=== PATIENT | female | born 1965 | race Hispanic/Latino ===

== ENCOUNTER 2017-01-18 14:29 | Inpatient (IN) | payer SELFPAY ==
[~2017-01-18] VITALS: Ht 160 cm; Wt 66.2 kg
[2017-01-18] VITALS (8 sets, daily range): BP systolic 91–111; BP diastolic 51–64; PULSE 66–89; RESP 14–17; O2SAT 98–100
[~2017-01-18 14:29] MED LIST: FERR-83 PO; FUR20 PO; INSLIS SQ; INSU100C8 SUBQ; SPIR50TA2 PO
--- NOTE | 2017-01-18 16:39 | ED.REPORT ---
HPI-Chest Pain 40 and Over Date of Service Jan 18, 2017 ED Provider: Raphael Reina MD A 51 year old female with a history of esophageal varices, primary biliary cirrhosis, diabetes, and GERD presents to the ED accompanied by her family with chest discomfort onset two days ago. The pain is described as "pressure" and "tightness." Associated symptoms include exertional SOB, intermittent lower extremity swelling, and recent weight gain (12lb in six months). The patient denies fever, chills, cough, vomiting, diarrhea, melena, hematochezia, or other symptoms. She has never had similar symptoms in the past. The patient speaks [place] and her family was translating. She has not noticed any bloody or melanotic stools. She has been becoming increasingly fatigued over the last several weeks. She has no history of DVT or PE. Nursing Notes Stated Complaint: CHEST PRESSURE Chief Complaint: Chest Pain Nursing Notes Reviewed: Yes Allergies: Coded Allergies: No Known Allergies (Verified Allergy, Unknown, 01/18/17) No Known Drug Allergies (Verified Allergy, Unknown, 09/26/16) Scheduled Ferrous Sulfate (Ferrous Sulfate) 325 Mg Tablet 325 MG PO BIDWM Furosemide (Furosemide) 20 Mg Tab 20 MG PO QAM Insulin Aspart (NovoLOG U100 Insulin Vial) 100 U/Ml U 10 UNIT SUBQ TIDWM 10 plus correctional per s/s Insulin Detemir (Levemir U100 Insulin Vial) 100 Unit/1 Ml Vial 15 UNIT SUBQ HS Nadolol (Nadolol) 20 Mg Tablet 20 MG PO QAM Spironolactone (Spironolactone) 50 Mg Tablet 50 MG PO QAM Ursodiol (Ursodiol) 250 Mg Tablet 250 MG PO TIDWM General Time Seen by MD: 16:37 Chief Complaint Chest pain Hx Obtained From: Patient, Other family... Arrived By: Walk-in Sudden in Onset?: No Onset Occurred: 2 days ago Symptom Duration: Since onset Location: : Chest left: Chest right Quality: Painful (Tight), Pressure Severity: Current: Moderate Severity: Maximum: Moderate Exacerbated by: Exertion, moderate Context Related History: Reports: Diabetes mellitus, GERD Recent Healthcare: No recent doctor visit Similar Sx Previous: No Past Medical History Past Medical History Liver cirrhosis. Primary biliary cirrhosis. Cholelithiasis. Symptomatic anemia. Uncontrolled insulin-dependent diabetes mellitus type 2. GERD. Past Surgical History Liver biopsy x2 Reports: Cholecystectomy Smoking History Unknown if Ever Smoker Social History Other Social History: Poor social support Ambulatory Status Independent Review of Systems Constitutional: Denies: Chills, Fever Respiratory: Reports: Shortness of breath (Exertional), Denies: Non-productive cough Cardiovascular: Reports: Chest pain GI: Denies: Diarrhea, Hematochezia, Melena, Vomiting Musculoskeletal: Reports: Extremity swelling (Intermittent, bilateral lower extremities) Complete sys rev & neg: except as marked. Endocrine: Reports: Weight gain (12lb in 6 months) Physical Exam Initial Vital Signs Vital Signs (First) Date Time Temp Pulse Resp B/P Pulse Ox O2 Delivery O2 Flow Rate FiO2 01/18/17 14:45 36.4 71 15 104/61 100 Room Air Initial VS: Reviewed Head / Eyes: Atraumatic, Normocephalic ENT: Conjunctiva normal, No scleral icterus Neck: Supple, Full range of motion Neurologic: Alert, Oriented, Nonfocal Psychiatric: Mood/affect normal, Behavior normal, Normal thought content General/Constitutional: Awake, Alert Respiratory / Chest: Breath sounds = bilat, No respiratory distress Mild crackles throughout lung bases bilaterally Cardiovascular: Heart rate NL, Regular rhythm, Heart sounds NL, No gallop, No murmurs, No rubs Abdomen: Soft, Non-tender, No distention Lower Extremity / Pelvis / MS: Inspection NL, No swelling, Non-tender, No edema Skin: Warm, Dry Spider angiomata to chest and face Rectum / Perineum: Atraumatic, No gross blood, No discharge, No fecal impaction , No fissures, No hemorrhoids Rectal for Blood: Positive: Blood - occult heme + (Dark brown, strongly guaiac positive) Interpretation & Diagnostics Lab Results Interpretation Result Diagram: 01/18/17 2030 01/18/17 1643 Test 01/18/17 16:43 White Blood Count 3.6th/mm3 (3.8-10.1) Red Blood Count 2.78mil/mm3 (3.90-5.20) Mean Corpuscular Volume 92.1fL (81-100) Mean Corpuscular Hemoglobin 27.0pg (27.0-35.0) Mean Corpuscular Hemoglobin Concent 29.3% (32.0-37.0) Red Cell Distribution Width 15.9% (12.3-15.4) Platelet Count 95bil/L (150-400) Neutrophils (%) (Auto) 62.3% (40-74) Lymphocytes (%) (Auto) 25.6% (14-46) Monocytes (%) (Auto) 8.4% (4-12) Eosinophils (%) (Auto) 3.1% (0-5) Basophils (%) (Auto) 0.3% (0-3) Prothrombin Time 12.0sec (8.1-12.5) Prothromb Time International Ratio 1.12ratio Sodium Level 135mEq/L (134-144) Potassium Level 3.6mEq/L (3.5-5.2) Chloride Level 100mEq/L (97-108) Carbon Dioxide Level 24mmol/L (18-29) Blood Urea Nitrogen 16mg/dL (6-24) Creatinine 0.64mg/dL (0.57-1.00) Estimat Glomerular Filtration Rate 141mL/min (>59) Glucose Level 68mg/dL (60-99) Calcium Level 8.9mg/dL (8.5-10.1) Magnesium Level 1.7mg/dL (1.6-2.6) Total Bilirubin 0.9mg/dL (0.0-1.2) Aspartate Amino Transf (AST/SGOT) 29U/L (0-50) Alanine Aminotransferase (ALT/SGPT) 24U/L (0-32) Alkaline Phosphatase 77U/L (25-150) Total Protein 8.1g/dL (6.4-8.4) Albumin 3.7g/dL (3.4-5.0) Hold [place] Top Tube Received (Received) ECG Interpretation Time: 16:52 Interpreted by: ED physician Normal ECG Interpretation: Normal ECG w/ rate of... (68) X-Ray Chest Interpretation Chest Xray Interpretation: IMPRESSION: No acute process. Dictated by: Tung Harman M.D. on 01/18/2017 at 17:59 View: Portable, 1 view Interpretation / Wet Read by: Interpret - Radiologist Re-Eval/Medical Decision Med Decision/Clinical Course A 51 year old female with a history of esophageal varices, primary biliary cirrhosis, diabetes, and GERD presents to the ED accompanied by her family with chest discomfort onset two days ago. The pain is described as "pressure" and "tightness." Associated symptoms include exertional SOB, intermittent lower extremity swelling, and recent weight gain (12lb in six months). The patient denies fever, chills, cough, vomiting, diarrhea, melena, hematochezia, or other symptoms. She has never had similar symptoms in the past. The patient speaks [place] and her family was translating. She has not noticed any bloody or melanotic stools. She has been becoming increasingly fatigued over the last several weeks. She has no history of DVT or PE. Here in the emergency department the patient is afebrile and hemodynamically stable. She has dark brown stool that is strongly guaiac positive. ECG 16:52 Normal ECG w/ rate 68 LABS: White blood count 3.6 - baseline Hematocrit 25.6 - down from 29.2 on 01/07/16 though patient's baseline trends from 21-29 recently CMP unremarkable Troponin negative Reviewed Chart. Endoscopy performed by Dr. Schneider 02/21/16 indicated grade 3 distal esophageal varices. In ED: Pantoprazole bolus and infusion Chest x-ray: Negative The cause of the patient's exertional shortness of breath and chest tightness is not entirely clear. He is without tachycardia or physical exam findings suggestive of DVT. She does not have any pleuritic chest discomfort and my suspicion for pulmonary embolism is relatively low. Moreover, has evidence of active GI bleeding and she has dropped her hematocrit significantly over the last 1-2 weeks. She would not be a candidate for heparinization and my suspicion for PE is very low. I do not feel further workup for PE is indicated. Acute coronary syndrome remains a possibility though also seems less likely. Initial screening EKG and troponin are reassuring. I suspect that her constellation of symptoms including fatigue, exertional shortness of breath and sensation of pressure/tightness in her chest may be all related to her underlying anemia and blood loss. Pt was discussed with GI Dr. Valles who evaluated the patient at the bedside. I had initially started her on pantoprazole bolus and infusion as well as octreotide given her history of varices. Dr. Valles did not feel that octreotide as necessary and therefore stopped. He did not feel that the patient was experiencing a brisk GI bleed though he agreed to perform endoscopy in the morning. Patient was admitted to the list service for close monitoring overnight and serial hematocrit as well as additional ACS rule out. Transferred hemodynamically stable and blood has been sent for type/screen. Source of Hx: Old records Time of Eval: 18:00 Patient Status: Condition improved Re-Evaluation/Progress Note: Rectal exam performed. Discussed with patient lab and x-ray results, diagnosis, and plan for admit. Patient agrees with plan for care and all questions were addressed. Consultation #1: Referral / Consult Name: Rylan Valles MD Call Returned at: 18:40 Haul Cane Brakeman: Will see patient, Agrees with eval, Agrees with plan Note: GI: Discussed patient's case Consultation #2: Referral / Consult Name: Cynthia Fry DO Consulted With: Hospitalist Call Returned at: 19:24 Haul Cane Brakeman: Agrees with eval, Agrees with plan, Accepts admit Counseled Regarding: Diagnosis, Lab results, Need for admission Discharge & Departure Primary Impression: Esophageal varices Esophageal varices type: unspecified type Esophageal varices bleeding: with bleeding Qualified Code: I85.01 - Esophageal varices with bleeding Additional Impressions: GI bleed GI bleed type/associated pathology: unspecified gastrointestinal hemorrhage type Qualified Code: K92.2 - Gastrointestinal hemorrhage, unspecified Dyspnea on exertion Fatigue Fatigue type: unspecified Qualified Code: R53.83 - Other fatigue Blood loss anemia Primary biliary cirrhosis Disposition: ADMITTED TO HOSPITAL Discharge Condition All VS Reviewed: Yes Condition: Improved Referrals: Rossi Romo MD (PCP) Crit Care Except Billable Proc Time Spent: 105-134 minutes Services Performed: Patient management by me, Time spent at bedside, Reviewing test results, Reviewing imaging, Discussing patient care, Documentation in record, Time with fam/surrogate Scribe Attestation Portions of this note were transcribed by Joslyn Ramirez. I, Dr. Reina, personally performed the history, physical exam, and medical decision-making; I reviewed and confirmed the accuracy of the information in the transcribed note. Signed by: Campbell Henriquez, 01/18/2017, 21:40 copies to: Rossi Romo MD, Beck O MD Jan 18, 2017 16:39 JOSLYN RAMIREZ Jan 18, 2017 18:00
[2017-01-18 16:59] LABS: BASOPHILS % (AUTO) 0.3 % (0-3); EOSINOPHILS % (AUTO) 3.1 % (0-5); MONOCYTES % (AUTO) 8.4 % (4-12); Mean Corpuscular Volume 92.1 fL (81-100); NEUTROPHILS % (AUTO) 62.3 % (40-74); Platelet Count 95 bil/L (150-400)
[2017-01-18 17:33] LABS: Magnesium 1.7 mg/dL (1.6-2.6); TROPONIN T < 0.010 ug/L (0.0-0.011)
--- NOTE | 2017-01-18 18:00 | DRSVH ---
PROCEDURE: X-RAY CHEST ONE VIEW, PORTABLE ([id number]) INDICATIONS: chest pain TECHNIQUE: One view of the chest was acquired. COMPARISON: [facility], CR, XR ABD ACUTE SERIES 3VW, 01/03/2016, 11:10. FINDINGS: Surgical changes and devices: None. Lungs and pleura: No pleural effusions or pneumothorax. Lungs are clear. Mediastinum: Mediastinal contours appear normal. Heart size is normal. Bones and chest wall: No suspicious bony lesions. Overlying soft tissues appear unremarkable. IMPRESSION: No acute process. Dictated by: Tung Harman M.D. on 01/18/2017 at 17:59 Approved by: Tung Harman M.D. on 01/18/2017 at 17:59
[2017-01-18] MEDS ORDERED: Pantoprazole Inj 80 MG, Pharmacy To Mix 1 EA in 0.9% Sodium Chloride 80 ML IV ONE ×2 (18:15)
[2017-01-18] MEDS ORDERED: Alum-Mag Hydrox-Simeth 30 mL Suspension PO PRN (18:15)
[2017-01-18] MEDS ORDERED: Ondansetron 2 mg/mL 2 mL Inj IVPUSH PRN (18:15)
[2017-01-18] MEDS ORDERED: Octreotide Inj 500 MCG in 0.9% Sodium Chloride 100 ML IV ONE (18:15)
[2017-01-18] MEDS ORDERED: Pantoprazole 4 mg/mL 10 mL Inj IVPUSH ONE (18:15)
[2017-01-18] MEDS ORDERED: 0.9% Sodium Chloride 50 ML ONE (18:19)
[2017-01-18 18:36] LABS: INR 1.12 ratio
[2017-01-18] MEDS ORDERED: Polyethylene Glycol (PEG) 17 Gm Powder PO PRN (19:30)
[2017-01-18] MEDS ORDERED: Pantoprazole Inj 80 MG in 0.9% Sodium Chloride 80 ML IV SCH (19:50)
[2017-01-18] MEDS ORDERED: URSO250T11 PO (19:52)
[2017-01-18] MEDS ORDERED: NADO20TA PO (19:52)
[2017-01-18] MEDS ORDERED: INSU100V4 SUBQ (19:52)
--- NOTE | 2017-01-18 20:10 | NUR ---
admission patient admitted with language line chemist steroids med rec completed by ED pharmacist. patient interview. Addendum: 01/18/17 at 2033 by VIET COOK RN verbal report to floor nurse cathy collado
--- NOTE | 2017-01-18 20:50 | CONS ---
[address] [address] CONSULTATION REPORT PATIENT: MARICRUZ KARIMI : 1965 MR#: [id number] ADMIT: 01/18/2017 JOB ID: [id number] DATE OF SERVICE: PHYSICIAN REQUESTING CONSULTATION: Dr. Reina. REASON FOR CONSULTATION: Supposed melena and symptomatic anemia. 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 She was diagnosed with this back in 2010 by a liver biopsy here at our institution. She also has a longstanding history of iron deficiency anemia for which she has undergone upper endoscopy, as well as colonoscopy with Dr. Schneider initially back in September 2010. It appears that she may have been lost to followup and then subsequently she had a capsule endoscopy done in December 2015, which revealed esophageal varices as well as gastropathy, subtle inflammatory small bowel nodule versus a nonbleeding angiodysplasia and small noninflammatory polyp. Following that, a repeat upper endoscopy was performed in January 2016, which revealed grade 3 distal esophageal varices and some scattered nodules with erosive features in the stomach as well as the duodenum. Biopsies that were taken at that time revealed that the gastric nodules were benign inflammatory polyp. I do not see that she had any followup with Dr. Schneider since January 2016. She now presents to the emergency department with a four- day complaint of chest tightness and shortness of breath at the request of her primary care provider, Dr. Rossi Romo, whom she saw today in clinic. She denies any overt bleeding since this hematemesis and melena and states that her stool was brown in color. She denies any chronic NSAID use. Other than fatigue and dyspnea with exertion, she has no complaints. PAST MEDICAL HISTORY: Significant for autoimmune hepatitis/PBC overlap syndrome, -induced diabetes. PAST SURGICAL HISTORY: Includes . FAMILY HISTORY: Noncontributory. SOCIAL HISTORY: Denies any alcohol or tobacco use. MEDICATIONS: At home include: 1. She states Ej three tablets daily. 2. Ferrous sulfate. 3. Furosemide 20 mg daily. 4. Spironolactone 50 mg daily. 5. Insulin. She has no known drug allergies. Her review of systems is otherwise negative except as mentioned in the HPI. PHYSICAL EXAMINATION: Her temperature is 36.4. Her pulse is 66. Her blood pressure is 111/62. Respiratory rate is 15. O2 saturations 98% on room air. Generally, she is a kimhia-updz-lfsgzkxez woman in no apparent distress. She is oriented to person, place, and time and answers questions appropriately. HEENT: No pallor. No icterus. Oropharynx is clear. Chest exam is clear to auscultation bilaterally. No telangiectasias noted on chest wall. Cardiovascular exam: S1-S2 heard, with a systolic murmur. Abdomen: Soft, nontender, nondistended, without hepatosplenomegaly. No ascites appreciated. Extremities with trace edema. Rectal exam shows brown stool. Her laboratory data shows a normal comprehensive metabolic profile, including completely normal LFTs, PT of 12. INR is 1.12. Her white blood cell count is 3.6 hemoglobin of 7.5, hematocrit of 25.6. MCV is 92, and platelet count is 95. When compared to December of last year, her hemoglobin at that time was 8.6 and hematocrit was 29.2. She has had imaging tests back in December [address] abdomen and pelvis with contrast which showed a cirrhotic- appearing liver, diffuse ascites, and cholelithiasis. ASSESSMENT AND PLAN: A 51-year-old woman with a longstanding history of iron deficiency anemia who has autoimmune hepatitis/primary biliary cirrhosis overlap syndrome presenting with symptomatic anemia. It is certainly possible that her symptoms of dyspnea on exertion are due to her anemia, though her anemia has been chronic. Would recommend transfusing her blood. However, would not transfuse to a hemoglobin more than 9, as this can worsen portal pressures. Will plan for upper endoscopy for variceal surveillance, which she is due for. In the meantime, I would restart her on her home medications to include Ursodiol, nadolol, spironolactone, and Aldactone. If upper endoscopy does not show any evidence of active bleeding, she could be discharged home following that, and then she could follow up with Dr. Torey Schneider for further followup of her anemia. Thank you for allowing me to participate in this patient's care. If you should have any further questions, please do not hesitate to contact me.
--- NOTE | 2017-01-18 22:13 | PCM.HPMED ---
Subjective Date of Service Jan 18, 2017 Primary Provider: Admitting Physician: Cynthia Fry DO Primary Care Physician: Rossi Romo MD Attending Physician: Cynthia Fry DO Admit Status: From the Emergency Department, [facility] Telemetry Chief Complaint: Chest pressure, abdominal distention and bilateral lower extremity edema History of Present Illness: Ms. Bhakta is a pleasant, [place] Islander-speaking 51 year old woman with a history of autoimmune hepatitis with primary biliary cirrhosis, esophageal varices, and gestational diabetes, presented to the emergency department with a 2 day history of chest pressure and tightness, with associated shortness of breath with exertion, bilateral lower extremity swelling, and reported abdominal distention. She was admitted for evaluation and treatment of atypical cardiac chest pain, and acute on chronic anemia. Hospital day 1 The patient states that her symptoms began approximately 2 days ago, and she could not conclude any triggers for her current symptoms. She states a 2 day history of dyspnea with exertion, abdominal fullness, and bilateral lower extremity swelling. She denies any recent follow-up with her office machine installer , Dr. Schneider. She is aware she has a history of a liver abnormality, and she states she has received blood transfusions in the past. Currently, she denies any fever, chills, nausea, vomiting, diarrhea, constipation, hematochezia, melena, hematemesis. She states she has not noticed any abnormal bleeding. She does note abdominal pain with what she describes as swelling of her abdomen , and not a pain, per se. She was seen in the emergency department by gastroenterology team, and recommendations were to admit patient for planned of EGD tomorrow morning. In the ED, initial therapies did include a PPI drip and octreotide, the octreotide was subsequently discontinued per GI once patient was deemed to not have an active bleed. Initial vitals revealed T 36 4, pulse 71, respiratory rate 15, blood pressure 104/61, 100% on room air; initial labs revealed WBC 3.6 , hemoglobin 7.5, hematocrit 25.6, platelets 95; repeat H&H revealed hemoglobin 6.5, hematocrit 22.3; electrolytes and liver function on admission were within normal range, troponin was negative. There was low suspicion for pulmonary embolism at time of admission, this patient did not have any signs or symptoms of DVT, tachycardia, and she is not a current candidate for heparinization secondary to suspected active ongoing bleed. She was transferred to [facility] in stable condition, with no continuance of symptoms of chest pain or pressure. Review of Systems: Complete ROS obtained; pertinent positives and negatives as noted above Allergies Coded Allergies: No Known Allergies (Verified Allergy, Unknown, 01/18/17) No Known Drug Allergies (Verified Allergy, Unknown, 09/26/16) Home Medications Obtained from ED documentation, med rec get to be completed Ferrous Sulfate (Ferrous Sulfate) 325 Mg Tablet 325 MG PO BIDWM Furosemide (Furosemide) 20 Mg Tab 20 MG PO QAM Insulin Aspart (NovoLOG U100 Insulin Vial) 100 U/Ml U 10 UNIT SUBQ TIDWM 10 plus correctional per s/s Insulin Detemir (Levemir U100 Insulin Vial) 100 Unit/1 Ml Vial 15 UNIT SUBQ HS Nadolol (Nadolol) 20 Mg Tablet 20 MG PO QAM Spironolactone (Spironolactone) 50 Mg Tablet 50 MG PO QAM Ursodiol (Ursodiol) 250 Mg Tablet 250 MG PO TIDWM PMH Liver cirrhosis secondary to primary biliary cirrhosis Cholelithiasis. Symptomatic anemia. Uncontrolled insulin-dependent diabetes mellitus type 2. GERD. Surgical History Liver biopsy x2 Cholecystectomy Family History Patient denies any family history of early cardiac , cardiac complications , or autoimmune disorders Social History Hx Alcohol Use: No Hx Substance Use: No Hx Tobacco Use: No Smoking Status: Never Smoker Living Arrangement: with Family Exam Vital Signs Vital Sign - Last Date Time Temp Pulse Resp B/P Pulse Ox O2 Delivery O2 Flow Rate FiO2 01/18/17 20:40 36.5 70 16 100/59 98 Room Air Exam General: Patient resting supine in bed in no acute distress HEENT: Atraumatic, no conjunctival pallor noted, mucous membranes were moist Cardiac: Regular rate and rhythm at time of examination no murmurs appreciated Chest: Pain not reproducible with palpation Pulmonary: Adequate airflow all winston, no wheeze or rhonchi appreciated Abdomen: Soft, mildly tender Extremities: Mild trace edema noted bilateral lower extremities Skin: Warm and dry MSK: Patient able to move for the 4 extremities against gravity Neuro: Cranial nerves II through XII grossly intact, speech without slur, facial expression is equal and symmetric Psych: Appropriate mood, affect, and responses to questioning; appears to have good insight and judgment about her condition Lab and Diagnostics Result Diagram: 01/18/17202901/18/17 1643 Assessment & Plan Ms. Bhakta is a pleasant, [place]er-speaking 51 year old woman with a history of autoimmune hepatitis with primary biliary cirrhosis, esophageal varices, and gestational diabetes, presented to the emergency department with a 2 day history of chest pressure and tightness, with associated shortness of breath with exertion, bilateral lower extremity swelling, and reported abdominal distention. She was admitted for evaluation and treatment of atypical cardiac chest pain, and acute on chronic anemia with suspected UGIB. Hospital day 1 Acute on chronic anemia, present on admission. Active - Admit: Hemoglobin 7.5, repeat 6.5; stat repeat for verification of drop-- 6.7 - Patient has history of esophageal varices, suspect upper gastrointestinal bleed - In ED, guaiac positive; repeat rectal exam per GI unremarkable with brown stool, no evidence of blood - Orders to transfuse TWO UpRBC based on repeat Hb 6.5, 6.7 - Continue PPI - No evidence of active bleeding, no octreotide recommended at this time - If patient were to be continuing a downward trend overnight despite transfusions, or exhibit signs of active bleeding such as hematemesis, melena, BRBPR- initiate octreotide - Continue to monitor closely at this time; trend q4 - GI has been consulted; appreciate time and recommendations - Current plan: EGD in am - Clears until 6am; then NPO - Do not transfuse blood to a Hb level > 9, with concern of worsening portal pressures - Consent for blood has been signed and placed in chart, with use of video delivery driver - 2g IV ceftriaxone x1, prophylaxis SBP in the setting of likely GIB, discuss continuation with GI Chest pressure with associated SOB with exertion, acute, present on admission. Resolved - Admit, patient complained of chest pressure and tightness without any inciting events with associated shortness of breath - At time of admission, chest pressure had subsided - DDx: Acute anemia, myocardial ischemia - On admit: Troponin negative - Trend troponin - EKG on admission revealed normal sinus rhythm without any acute ST/T changes - EKGs as needed for chest pain Primary biliary cirrhosis, chronic. Presumed stable - Followed by [facility] gastroenterology - Continue home medications when reconciliation complete Pancytopenia, chronicity unknown, present on admission. Ongoing - On admit: WBC 3.6, hemoglobin 7.5, hematocrit 25.6, platelets 95 - May be secondary to suspected upper GI bleed + history of cirrhosis - Monitor while in the hospital - Recommend continued outpatient follow-up Insulin using diabetes mellitus, chronic. Presumed stable - HbA1c in am - Home med reported at long acting 15U nightly - Low dose correctional scale in place - Give 6U long acting tonight PRN: Fever/bowel/pain/nausea DVT: SCDs only at this time secondary to active bleeding GI: PPI drip Diet: Clears until 6 AM 01/19, and then nothing by mouth CODE STATUS: Full code Patient status: Due to severity of presenting symptoms, risk of adverse events, and likely course of care, anticipated length of stay at time of admission was less than two midnight; patient was admitted as observation status, but this pain need to be changed based on pending laboratory results and results of EGD Pain Evaluation: Adequate Pain Control GI Prophylaxis: Proton Pump Inhibitor VTE Prophylaxis: SCDs Resuscitation Status: CPR: Attempt Resuscitation Attending Statement The patient was seen and examined together with house staff on 01/19/2017 and I agree with the history, exam and plan as outlined in the note above. Dedra Mauro DO Jan 18, 2017 22:13 Cynthia Fry DO Jan 19, 2017 04:13
[2017-01-18] MEDS: Pantoprazole Inj 80 MG in 0.9% Sodium Chloride 80 ML IV SCH (22:15)
[2017-01-18] MEDS: Insulin GLARgine 100 Unit/mL Syringe SUBQ SCH (22:45)
[2017-01-18] MEDS ORDERED: Glucose 40% Oral Gel 15 Gm Tube PO PRN (22:45)
[2017-01-18] MEDS: 0.9% Sodium Chloride 250 ML IV SCH ×2 (22:55→23:06)
[2017-01-19] VITALS (14 sets, daily range): BP systolic 93–134; BP diastolic 50–71; PULSE 64–74; RESP 14–18; O2SAT 94–100
--- NOTE | 2017-01-19 00:10 | NUR ---
NEW ADMIT Pt arrived to the floor @ 2029, Pt is Algerian speaking, VSS, denies current pain or SOB. Pt's Hgb went from 7.5 to 6.7 upon arrival, 2 units RBC ordered. No s/s of adverse reaction to transfusion, no other issues noted at this time. Addendum: 01/19/17 at 0639 by SHEMAR DESAI RN Hgb 8.9 for AM labs.
[2017-01-19] MEDS: cefTRIAXone Inj 2,000 MG in Dextrose 5% Minibag Plus 50 ML IV SCH (05:07)
[2017-01-19 05:38] LABS: BASOPHILS % (AUTO) 0.5 % (0-3); EOSINOPHILS % (AUTO) 3.3 % (0-5); MONOCYTES % (AUTO) 7.9 % (4-12); Mean Corpuscular Hemoglobin 27.7 pg (27.0-35.0); Mean Corpuscular Volume 89.4 fL (81-100); NEUTROPHILS % (AUTO) 56.6 % (40-74); Platelet Count 92 bil/L (150-400)
[2017-01-19 05:58] LABS: Magnesium 1.6 mg/dL (1.6-2.6); Phosphorus 3.9 mg/dL (2.5-4.9)
[2017-01-19] MEDS: Insulin LISPRO 300 Unit/3 mL Inj SUBQ SCH ×4 (08:00→22:00)
[2017-01-19] MEDS: Pantoprazole Inj 80 MG in 0.9% Sodium Chloride 80 ML IV SCH (08:15)
--- NOTE | 2017-01-19 12:41 | PCM.PNMED ---
Subjective Date of Service Jan 19, 2017 Subjective Patient states she is feeling better. Denies chest pressure, shortness of breath , abdominal pain, nausea, vomiting. She is NPO for upcoming upper endoscopy. She reports no problems with voiding or ambulation. Exam Vital Signs Vital Sign - Last Date Time Temp Pulse Resp B/P Pulse Ox O2 Delivery O2 Flow Rate FiO2 01/19/17 12:11 36.8 69 16 119/69 97 Room Air Intake and Output 01/18/17 01/18/17 01/19/17 Cumulative From/Thru 15:00 23:00 07:00 01/18/17 14:45 - 01/19/17 06:45 Intake Total 1390 ml 1390 ml Output Total 0 ml 0 ml Balance 1390 ml 1390 ml Intake Oral 50 ml 50 ml IV Total 740 ml 740 ml Packed Cells 600 ml 600 ml Output Urine Total 0 ml 0 ml Exam General: Pleasant female resting supine in bed in no acute distress HEENT: Atraumatic, no conjunctival pallor noted, mucous membranes were moist Cardiac: Regular rate and rhythm at time of examination no murmurs appreciated Chest: Pain not reproducible with palpation Pulmonary: Adequate airflow all winston, no wheeze or rhonchi appreciated Abdomen: Soft, mildly tender Extremities: Mild trace edema noted bilateral lower extremities Skin: Warm and dry Psych: Appropriate mood, affect, and responses to questioning; appears to have good insight and judgment about her condition IVs and Medications Medications Reviewed: Medications were reviewed in detail Lab and Diagnostics Result Diagram: 01/19/17 0815 01/19/17 0530 X-Rays, CTs and MRIs X-RAY CHEST IMPRESSION: No acute process. Dictated and approved by: Tung Harman M.D. on 01/18/2017 at 17:59 Assessment & Plan Ms. Bhakta is a pleasant, Australian-speaking 51 year old woman with a history of autoimmune hepatitis with primary biliary cirrhosis, esophageal varices, and gestational diabetes, presented to the emergency department with a 2 day history of chest pressure and tightness, with associated shortness of breath with exertion, bilateral lower extremity swelling, and reported abdominal distention. She was admitted for evaluation and treatment of atypical cardiac chest pain, and acute on chronic anemia with suspected UGIB. Hospital day 2. Acute on chronic anemia, present on admission. Active - Admit: Hemoglobin 7.5, repeat 6.5; stat repeat for verification of drop-- 6.7 ; current hemoglobin is 9.3 status post transfusion, 2 units of PRBCs - Patient has history of esophageal varices, suspect upper gastrointestinal bleed - In ED, guaiac positive; repeat rectal exam per GI unremarkable with brown stool, no evidence of blood - Orders to transfuse TWO UpRBC based on repeat Hb 6.5, 6.7 - Continue PPI - No evidence of active bleeding, no octreotide recommended at this time - If patient were to be continuing a downward trend overnight despite transfusions, or exhibit signs of active bleeding such as hematemesis, melena, BRBPR- initiate octreotide - Continue to monitor closely at this time; trend q4 - GI has been consulted; appreciate time and recommendations - Current plan: EGD in the afternoon - Patient is NPO - Do not transfuse blood to a Hb level > 9, with concern of worsening portal pressures - Consent for blood has been signed and placed in chart, with use of video hematology technologist - 2g IV ceftriaxone x1, prophylaxis SBP in the setting of likely GIB, discuss continuation with GI Chest pressure with associated SOB with exertion, acute, present on admission. Resolved - Admit, patient complained of chest pressure and tightness without any inciting events with associated shortness of breath - At time of admission, chest pressure had subsided - DDx: Acute anemia, myocardial ischemia - On admit: Troponin negative - Trend troponin - EKG on admission revealed normal sinus rhythm without any acute ST/T changes - EKGs as needed for chest pain Primary biliary cirrhosis, chronic. Presumed stable - Followed by [facility] gastroenterology - Continue home medications when reconciliation complete Pancytopenia, chronicity unknown, present on admission. Ongoing - On admit: WBC 3.6, hemoglobin 7.5, hematocrit 25.6, platelets 95 - May be secondary to suspected upper GI bleed + history of cirrhosis - Monitor while in the hospital - Recommend continued outpatient follow-up Insulin using diabetes mellitus, chronic. Presumed stable - HbA1c in am - Home med reported at long acting 15U nightly - Low dose correctional scale in place - Give 6U long acting tonight PRN: Fever/bowel/pain/nausea Patient status: Due to severity of presenting symptoms, risk of adverse events, and likely course of care, anticipated length of stay at time of admission was less than two midnight; patient was admitted as observation status, but this pain need to be changed based on pending laboratory results and results of EGD Pain Evaluation: Adequate Pain Control GI Prophylaxis: Proton Pump Inhibitor VTE Prophylaxis: SCDs Resuscitation Status: CPR: Attempt Resuscitation Attending Statement The patient was seen and examined together with Dr. Molina on 01/19/2017 and I agree with the history, exam and plan as outlined in the note above. . Jackie Molina DO Jan 19, 2017 12:41 Yasir Moya MD Jan 20, 2017 14:41
[2017-01-19] MEDS ORDERED: fentaNYL-PF 50 mCg/mL 2 mL Inj ONE (12:46)
[2017-01-19] MEDS ORDERED: fentaNYL-PF 50 mCg/mL 2 mL Inj IVPUSH PRN (12:50)
[2017-01-19] MEDS ORDERED: 0.9% Sodium Chloride 1,000 ML IV ONE (13:03)
--- NOTE | 2017-01-19 14:02 | ENDO ---
[address] [address] ENDOSCOPY PROCEDURE PATIENT: MARICRUZ KARIMI : 1965 MR#: [id number] ADMIT: 01/18/2017 JOB ID: [id number] DATE: 01/19/2017 PROCEDURE: Esophagogastroduodenoscopy. INDICATION: A 51-year-old woman with a history of iron deficiency anemia and cirrhosis secondary to autoimmune hepatitis/PBC overlap syndrome presenting with symptomatic anemia. She has a history of large esophageal varices that was documented based on upper endoscopy performed in January of 2016. INSTRUMENT USED: GIF H 180 J. MEDICATIONS: 1. Versed 3 mg. 2. Fentanyl 75 mcg. The patient's ASA classification is 2. Mallampati score is 2. PROCEDURE DETAILS: After informed consent was obtained, the patient was brought into the GI suite, where she was placed on oxygen via nasal cannula and monitored with continuous pulse oximeter, telemetry and blood pressure monitoring. A time-out was performed. Then, she was placed in the left lateral decubitus position and medications were administered for sedation. A bite block was placed. The standard EGD scope was then inserted through the bite block and advanced without difficulty to the second portion of the duodenum. FINDINGS: 1. Normal appearing duodenal bulb, first and second portion. Bile stained mucosa was seen throughout the examined portions of the duodenum. 2. Normal appearing pylorus. 3. There were scattered nodules throughout the antrum and body of the stomach. These were not actively bleeding, but did appear to be friable. Biopsies were not obtained as she had had biopsies done last year which indicated that these were hyperinflammatory in nature. 4. Retroflexed views in the gastric body did not show any varices in the fundus. However, varices from the esophagus were seen extending to the GE junction. No stigmata of bleeding was seen on these varices. 5. The GE junction was at approximately 38 cm, and from 38 cm extending up to 23 cm, there were three columns of large varices. No stigmata of recent bleeding was seen on these varices, and in the proximal portion the varices did flatten out with insufflation. IMPRESSION: 1. No active bleeding. 2. Multiple scattered nodules throughout the antrum and body of the stomach. 3. Large esophageal varices without stigmata of bleeding. RECOMMENDATIONS: 1. Would start nadolol and escalate dose as patient tolerates. 2. Would start her on a PPI daily. 3. Would obtain an ultrasound of the abdomen with Doppler for HCC screening. 4. I would restart Ursodiol 300 mg tablets, three times a day. 5. Would restart diuretics, Lasix 20 mg daily and spironolactone 50 mg daily. 6. Would discontinue Protonix drip.and keep on protonix 20mg daily 7. Advance diet to a low-sodium diet. 8. Follow H and H. 9. Follow up in GI clinic with Dr. Schneider in the next 2-4 weeks. COMPLICATIONS: None. ESTIMATED BLOOD LOSS: 0. MTDD
--- NOTE | 2017-01-19 15:54 | NUR ---
Social Work: Screening Data: Pt is a 51 y/o female admitted for GI bleed. Pt's PCP is Dr Romo, pt's insurance is self pay.HEDGE FUND TRADER will follow up with pt regarding [facility] application. HEDGE FUND TRADER will continue to follow for possible d/c needs. Assessment: [facility] Plan: Pt will likely d/c home via POV when medically stable. HEDGE FUND TRADER will follow up with pt regarding [facility] application. HEDGE FUND TRADER will continue to follow for possible d/c needs. MACKENZIE Allan
--- NOTE | 2017-01-19 19:16 | NUR ---
Endoscopy Cardiac: Pt reports chest tightness 4/10 this morning has been ongoing issue, pt reports it feels better than it did when she was home. Dr ordonez Tele: SR 70s Resp: Pt denies SOB, SPO2 96% on RA. GI/: Denies N/V Neuro: A&Ox3, GRAHAM. pt is maltese speaking, used video spanish interpreter
[2017-01-19] MEDS: Insulin GLARgine 100 Unit/mL Syringe SUBQ SCH (21:00)
[2017-01-19] MEDS: 0.9% Sodium Chloride 250 ML IV SCH ×2 (21:45→22:55)
[2017-01-20 00:40] VITALS: BP 101/61; PULSE 71; RESP 20; O2SAT 95
[2017-01-20 03:29] LABS: BASOPHILS % (AUTO) 0.5 % (0-3); EOSINOPHILS % (AUTO) 3.7 % (0-5); MONOCYTES % (AUTO) 8.5 % (4-12); Mean Corpuscular Hemoglobin 27.5 pg (27.0-35.0); Mean Corpuscular Volume 88.4 fL (81-100); NEUTROPHILS % (AUTO) 61.7 % (40-74); Platelet Count 76 bil/L (150-400)
[2017-01-20] MEDS: cefTRIAXone Inj 2,000 MG in Dextrose 5% Minibag Plus 50 ML IV SCH (04:12)
[2017-01-20 04:50] VITALS: PULSE 72
--- NOTE | 2017-01-20 05:28 | NUR ---
Uneventful Night Pt rested through the night with no complaints of pain or discomfort. Denies SOB, n/v. Pt reports tightness in chest is "the same." Bed locked, low position. Call light within reach, using appropriately. Frequent rounding in place. Pleasant and cooperative with care.
[2017-01-20 05:35] VITALS: BP 107/67; PULSE 73; RESP 18; O2SAT 97
[2017-01-20] MEDS ORDERED: Pantoprazole 20 mg ER24 Tablet PO SCH (07:30)
[2017-01-20 08:38] VITALS: BP 114/68; PULSE 71; RESP 16; O2SAT 96
[2017-01-20 09:00] VITALS: PULSE 74
--- NOTE | 2017-01-20 09:27 | DRSVH ---
PROCEDURE: US ABDOMEN ([id number]) INDICATIONS: Cirrhosis TECHNIQUE: Real-time scanning was performed of the abdominal and retroperitoneal organs, with image documentatio n. COMPARISON: Merged With [facility], US, ABDOMEN LTD, 01/05/2016, 14:29. Merged With [facility], CT, CT ABD PELVIS W CON, 01/03/2016, 15:30. FINDINGS: Liver: Liver is mildly decreased in size and demonstrates coarsened/nodular in echotexture. Gallbladder: The gallbladder demonstrates a prominent stone, unchanged from prior exams. The wall is thickened measuring approximately 6 mm. It is also contracted. Biliary ducts: Intrahepatic bile ducts are non-dilated. Extrahepatic bile duct caliber measures 8 m m. Normal is 6-7 mm or less in diameter, or 10 mm or less post-cholecystectomy. Pancreas: Visualized portions of the pancreas are sonographically normal. Spleen: Spleen is normal in size and homogeneous in echotexture. Kidneys: Kidneys are normal in size and echotexture. Right kidney measures 12.5 cm long; left kidne y measures 11.7 cm long. No hydronephrosis or nephrolithiasis. No solid masses. There is a 15 x 12 x 10 mm focus of complex echogenicity within the superior left renal pole, not well-defined and not identified on prior exam. Aorta: Visualized aorta is normal in caliber at less than 3 cm. Iliacs: Proximal common iliac arteries are normal in caliber at less than 2.5 cm. IVC: Intrahepatic inferior vena cava is patent. Miscellaneous: Small amount of left upper quadrant fluid is noted. IMPRESSION: 1. Cirrhotic appearance of the liver. 2. Contracted gallbladder with stone. The wall is thickened, which could be secondary to contracture. Appearance of the gallbladder appear similar when compared to CT exam of 01/03/16. While this could b e related to cholecystitis, and appearance could be secondary to contracture or hepatic disease. Ther e is mild prominence of the common bile duct without visualized obstruction. This has not significant ly changed compared to prior exam. 3. Complex focus of hyperechogenicity within the left kidney, not well characterized. This could repr esent a complex cyst. Followup ultrasound is recommended to document stability. Dictated by: Jihan Beckford M.D. on 01/20/2017 at 9:09 Approved by: Jihan Beckford M.D. on 01/20/2017 at 9:25
[2017-01-20] MEDS: Insulin LISPRO 300 Unit/3 mL Inj SUBQ SCH (09:40)
--- NOTE | 2017-01-20 10:14 | PCM.PNMED ---
Subjective Date of Service Jan 20, 2017 Subjective no complaints no bleeding feels well Exam Vital Signs Vital Sign - Last Date Time Temp Pulse Resp B/P Pulse Ox O2 Delivery O2 Flow Rate FiO2 01/20/17 09:00 74 01/20/17 08:38 36.6 16 114/68 96 Room Air Intake and Output 01/19/17 01/19/17 01/20/17 Cumulative From/Thru 15:00 23:00 07:00 01/18/17 14:45 - 01/20/17 04:30 Intake Total 200 ml 430 ml 2020 ml Output Total 0 ml Balance 200 ml 430 ml 2020 ml Intake Oral 400 ml 450 ml IV Total 200 ml 30 ml 970 ml Packed Cells 600 ml Output Urine Total 0 ml # Voids 3 3 Exam Generally, she is a [id number] woman in no apparent distress. She is oriented to person, place, and time and answers questions appropriately. HEENT: No pallor. No icterus. Oropharynx is clear. Chest exam is clear to auscultation bilaterally. No telangiectasias noted on chest wall. Cardiovascular exam: S1-S2 heard, with a systolic murmur. Abdomen: Soft, nontender, nondistended, without hepatosplenomegaly. No ascites appreciated. Extremities with trace edema. Lab and Diagnostics Result Diagram: 01/20/17 0320 01/20/17 0320 X-Rays, CTs and MRIs X-RAY CHEST IMPRESSION: No acute process. Dictated and approved by: Tung Harman M.D. on 01/18/2017 at 17:59 Assessment & Plan Acute on chronic anemia, presenting with symptomatic anemia - no overt bleeding -EGD revealed large varies without stigmata of high risk for bleeding or evidence of recent bleeding -nadolol 40mg at bedtime -PPI daily -follow in GI clinic for further evaluation of anemia, repeat capsule endoscopy possibly as per Dr Schneider's last clinic visit note -iron supplementation PBC/autoimmune hepatitis overlap syndrome -continue alton -LFT's stable -Bili elevated secondary to recent blood transfusion as it was normal on admission -USG abdomen with Doppler pending Ascites/Edema -low sodium diet, less than 2000mg/day -continue diuretics GI Prophylaxis: Proton Pump Inhibitor VTE Prophylaxis: SCDs Resuscitation Status: CPR: Attempt Resuscitation Rylan Valles MD Jan 20, 2017 10:13
--- NOTE | 2017-01-20 10:29 | NUR ---
Social Work: Discharge Data: Pt is on day 2 of hospitalization. EMR reviewed, pt discussed in rounds. MD states pt will d/c today. MERGERS AND ACQUISITIONS ASSOCIATE met with pt with heavy mobile equipment operator, gave her the [facility] care application and explained it to her. Pt reports no other needs at this time. MERGERS AND ACQUISITIONS ASSOCIATE will continue to follow if needs arise. Assessment: Pt who is independent at baseline. Plan: Pt will d/c home via POV today with family. [facility] application given. Pt reports no other needs at this time. MERGERS AND ACQUISITIONS ASSOCIATE will continue to follow if needs arise. MACKENZIE Allan
[2017-01-20] MEDS ORDERED: NADO40TA PO (11:43)
[2017-01-20] MEDS ORDERED: PANT20TA2 PO (11:44)
--- NOTE | 2017-01-20 11:50 | PCM.DIMED ---
Tristan Galvin DO 01/20/17 1150: Discharge Instructions Date of Service Jan 20, 2017 Dates of Hospitalization Jan 18, 2017 at 19:58 Discharge Diagnosis Discharge Diagnosis Acute on chronic anemia, present on admission. Active Chest pressure with associated SOB with exertion, acute, present on admission. Resolved Primary biliary cirrhosis, chronic. Presumed stable Pancytopenia, chronicity unknown, present on admission. Ongoing Insulin using diabetes mellitus, chronic. Presumed stable Medication Instructions During this hospitalization there were changes to your medications. Unless otherwise instructed by a physician, please follow these medication instructions. Note that your physician may continue to change your medication regimen. New medications: - Protonix 20mg. Take one tablet by mouth daily. Other changes: -Nadolol. The dose of your nadolol was increased from 20mg to 40mg before bedtime. Continue your other home medications. Take them as directed. Diet Low fat, Low Sodium Activity No restrictions Call your provider Bleeding Patient Instructions Follow-up plan Follow up with your primary care provider in about one week to discuss this hospitalization. You will also need to follow up with manager business, Dr. Schneider, in about 2 to 4 weeks. Follow-up Provider: Rossi Romo MD Follow-up with PCP in: 1 week Provider: Torey Schneider MD Follow-up in: 2 weeks Yasir Moya MD 01/20/17 1448: Discharge Instructions Attending's Statement The patient was seen and examined together with Dr. Galvin on 01/20/2017 and I agree with the history, exam and plan as outlined in the note above. . Tristan Galvin DO Jan 20, 2017 11:50 Yasir Moya MD Jan 20, 2017 14:48
--- NOTE | 2017-01-20 13:25 | NUR ---
discharge Pt discharged home today at 13:20. Pt off floor via ambulation with all of her belongings in the company of the nurse and her family to private vehicle. video signing agent used for discharge teaching. Follow up instructions explained, prescriptions given, and education materials on meds and low sodium diet provided. Questions answered, pt and family voice understanding.
--- NOTE | 2017-01-21 19:54 | PCM.DC.MED ---
Discharge Summary Date of Service January 21, 2017 Dates of Hospitalization Date of Hospital Admission Jan 18, 2017 at 19:58 Date of Discharge: Jan 20, 2017 Providers: Admitting Physician: Cynthia Fry DO Primary Care Physician: Rossi Romo MD Attending Physician: Cynthia Fry DO Diagnosis at Time of Discharge Diagnosis at Time of Discharge Acute on chronic anemia, present on admission. Active Chest pressure with associated SOB with exertion, acute, present on admission. Resolved Primary biliary cirrhosis, chronic. Presumed stable Pancytopenia, chronicity unknown, present on admission. Ongoing Insulin using diabetes mellitus, chronic. Presumed stable Consultations Dr. Rylan Valles of Gastroenterology Procedures XRay, CTs & MRIs X-RAY CHEST IMPRESSION: No acute process. Dictated and approved by: Tung Harman M.D. on 01/18/2017 at 17:59 Other Diagnostics Date of Service: 01/19/17 1312 PROCEDURE: US ABDOMEN ([id number]) IMPRESSION: 1. Cirrhotic appearance of the liver. 2. Contracted gallbladder with stone. The wall is thickened, which could be secondary to contracture. Appearance of the gallbladder appear similar when compared to CT exam of 01/03/16. While this could be related to cholecystitis, and appearance could be secondary to contracture or hepatic disease. There is mild prominence of the common bile duct without visualized obstruction. This has not significantly changed compared to prior exam. 3. Complex focus of hyperechogenicity within the left kidney, not well characterized. This could represent a complex cyst. Followup ultrasound is recommended to document stability. Dictated by: Jihan Beckford M.D. on 01/20/2017 at 9:09 Approved by: Jihan Beckford M.D. on 01/20/2017 at 9:25 Brief History Per admit note by Dr. Dedra Mauro dated 01/18/2017: Ms. Bhakta is a pleasant, [place]-speaking 51 year old woman with a history of autoimmune hepatitis with primary biliary cirrhosis, esophageal varices, and gestational diabetes, presented to the emergency department with a 2 day history of chest pressure and tightness, with associated shortness of breath with exertion, bilateral lower extremity swelling, and reported abdominal distention. She was admitted for evaluation and treatment of atypical cardiac chest pain, and acute on chronic anemia. Hospital day 1 The patient states that her symptoms began approximately 2 days ago, and she could not conclude any triggers for her current symptoms. She states a 2 day history of dyspnea with exertion, abdominal fullness, and bilateral lower extremity swelling. She denies any recent follow-up with her illusionist , Dr. Schneider. She is aware she has a history of a liver abnormality, and she states she has received blood transfusions in the past. Currently, she denies any fever, chills, nausea, vomiting, diarrhea, constipation, hematochezia, melena, hematemesis. She states she has not noticed any abnormal bleeding. She does note abdominal pain with what she describes as swelling of her abdomen , and not a pain, per se. She was seen in the emergency department by gastroenterology team, and recommendations were to admit patient for planned of EGD tomorrow morning. In the ED, initial therapies did include a PPI drip and octreotide, the octreotide was subsequently discontinued per GI once patient was deemed to not have an active bleed. Initial vitals revealed T 36 4, pulse 71, respiratory rate 15, blood pressure 104/61, 100% on room air; initial labs revealed WBC 3.6 , hemoglobin 7.5, hematocrit 25.6, platelets 95; repeat H&H revealed hemoglobin 6.5, hematocrit 22.3; electrolytes and liver function on admission were within normal range, troponin was negative. There was low suspicion for pulmonary embolism at time of admission, this patient did not have any signs or symptoms of DVT, tachycardia, and she is not a current candidate for heparinization secondary to suspected active ongoing bleed. She was transferred to [facility] in stable condition, with no continuance of symptoms of chest pain or pressure. Hospital Course Patient is a 51-year-old [place]-speaking woman with a history of autoimmune hepatitis with primary biliary cirrhosis, esophageal varices, and gestational diabetes presenting to [facility] with a 2-day history of chest pressure and tightness, with associated shortness of breath with exertion, bilateral lower extremity swelling, and reported abdominal distention. She was admitted for evaluation and treatment of atypical cardiac chest pain and acute on chronic anemia with suspected upper GI bleed. #Acute on chronic anemia, present on admission. - Admit: Hemoglobin 7.5. Patient was transfused 2 units PRBCs - Patient has history of esophageal varices with suspected upper gastrointestinal bleed - Patient was started on a PPI. Hemoglobin and hematocrit were trended. - Patient received 2g IV ceftriaxone for SBP prophylaxis in the setting of likely GI bleed. - Patient underwent EGD that showed large varies without stigmata of high risk for bleeding or evidence of recent bleeding #Chest pressure with associated SOB with exertion, acute, present on admission. Resolved - At time of admission, chest pressure had subsided - Troponin was trended during hospitalization and negative - EKG showed normal sinus rhythm without any acute ST/T changes #Primary biliary cirrhosis, chronic. Presumed stable -EGD findings as above. -Nadolol was increased from 20mg to 40mg at bedtime -Patient is to continue PPI daily. -Recommend outpatient follow up with Dr. Schneider of Gastroenterology in about 2- 4 weeks to review results of abdominal ultrasound -Patent is to continue iron supplementation #Pancytopenia, chronicity unknown, present on admission. Ongoing - On admit: WBC 3.6, hemoglobin 7.5, hematocrit 25.6, platelets 95 - Likely related to history of cirrhosis - Recommend continued outpatient follow-up #Insulin using diabetes mellitus, chronic. Presumed stable - HbA1c 6.3% - Patient continued on insulin regimen while hospitalized #Left kidney lesion, uncertain acuity. Present on admission - Incidental finding on abdominal ultrasound: Complex focus of hyperechogenicity within the left kidney, not well characterized. This could represent a complex cyst. Followup ultrasound is recommended to document stability. - Recommend follow up renal ultrasound Exam Vital Signs (Last) Date Time Temp Pulse Resp B/P Pulse Ox O2 Delivery O2 Flow Rate FiO2 01/20/17 09:00 74 01/20/17 08:38 36.6 16 114/68 96 Room Air Exam General: Pleasant female sitting upright in chair. No acute distress. Appropriately interactive HEENT: Atraumatic, no conjunctival pallor noted, mucous membranes were moist Cardiac: Regular rate and rhythm. No murmurs, rubs or gallops appreciated Pulmonary: Clear bilaterally with no wheeze or rhonchi appreciated Abdomen: Soft. No tenderness on palpation Extremities: Trace bilateral lower extremity peripheral edema Skin: Warm and dry Psych: Appropriate mood and affect Test 01/18/17 16:43 01/18/17 22:30 01/19/17 05:30 01/20/17 03:20 Prothrombin Time 12.0sec (8.1-12.5) Prothromb Time International Ratio 1.12ratio Hold [place] Top Tube Received (Received) Hemoglobin A1c 6.3% (4.8-5.6) Troponin T 0.010ug/L (0.0-0.011) Phosphorus Level 3.9mg/dL (2.5-4.9) Magnesium Level 1.6mg/dL (1.6-2.6) White Blood Count 3.8th/mm3 (3.8-10.1) Red Blood Count 3.27mil/mm3 (3.90-5.20) Hemoglobin 9.0g/dL (12.0-15.6) Hematocrit 28.9% (35.0-46.0) Mean Corpuscular Volume 88.4fL (81-100) Mean Corpuscular Hemoglobin 27.5pg (27.0-35.0) Mean Corpuscular Hemoglobin Concent 31.1% (32.0-37.0) Red Cell Distribution Width 16.3% (12.3-15.4) Platelet Count 76bil/L (150-400) Neutrophils (%) (Auto) 61.7% (40-74) Lymphocytes (%) (Auto) 25.3% (14-46) Monocytes (%) (Auto) 8.5% (4-12) Eosinophils (%) (Auto) 3.7% (0-5) Basophils (%) (Auto) 0.5% (0-3) Sodium Level 135mEq/L (134-144) Potassium Level 4.6mEq/L (3.5-5.2) Chloride Level 102mEq/L (97-108) Carbon Dioxide Level 22mmol/L (18-29) Blood Urea Nitrogen 14mg/dL (6-24) Creatinine 0.71mg/dL (0.57-1.00) Estimat Glomerular Filtration Rate 125mL/min (>59) Glucose Level 178mg/dL (60-99) Calcium Level 8.2mg/dL (8.5-10.1) Total Bilirubin 1.4mg/dL (0.0-1.2) Aspartate Amino Transf (AST/SGOT) 30U/L (0-50) Alanine Aminotransferase (ALT/SGPT) 22U/L (0-32) Alkaline Phosphatase 76U/L (25-150) Total Protein 7.0g/dL (6.4-8.4) Albumin 3.3g/dL (3.4-5.0) Discharge Medications Discharge Medications Ferrous Sulfate (Ferrous Sulfate) 325 Mg Tablet 325 MG PO BIDWM (Reported) Furosemide (Furosemide) 20 Mg Tab 20 MG PO QAM (Reported) Insulin Aspart (NovoLOG U100 Insulin Vial) 100 U/Ml U 10 UNIT SUBQ TIDWM ( Reported) 10 plus correctional per s/s Insulin Detemir (Levemir U100 Insulin Vial) 100 Unit/1 Ml Vial 15 UNIT SUBQ HS ( Reported) Nadolol (Nadolol) 40 Mg Tablet 40 MG PO HS Prescribed by: ODELL BRYAN DO Pantoprazole DR (Pantoprazole DR) 20 Mg Tablet.dr 20 MG PO DAILYAC Prescribed by: ODELL BRYAN DO Spironolactone (Spironolactone) 50 Mg Tablet 50 MG PO QAM (Reported) Ursodiol (Ursodiol) 250 Mg Tablet 250 MG PO TIDWM (Reported) Additional med instructions During this hospitalization there were changes to your medications. Unless otherwise instructed by a physician, please follow these medication instructions. Note that your physician may continue to change your medication regimen. New medications: - Protonix 20mg. Take one tablet by mouth daily. Other changes: -Nadolol. The dose of your nadolol was increased from 20mg to 40mg before bedtime. Continue your other home medications. Take them as directed. Followup Plan Follow-up plan Follow up with your primary care provider in about one week to discuss this hospitalization. You will also need to follow up with illusionist, Dr. Schneider, in about 2 to 4 weeks. Discharge Diet: Low fat, Low Sodium Discharge Activity: No restrictions Follow-up Provider: Rossi Romo MD Follow-up with PCP in: 1 week Provider: Torey Schneider MD Follow-up in: 2 weeks Time spent Greater than 30 minutes was spent in preparation of discharge with greater than 50% of that time dedicated to patient counseling and coordination of care. . Attending Statement The patient was seen and examined together with Dr. Bryan on 01/20/2017 and I agree with the history, exam and plan as outlined in the note above. . copies to: Rossi Romo MD, Bob A DO January 21, 2017 19:54 Yasir Moya MD January 24, 2017 19:32
== END 2017-01-20 13:40 | disposition home or self-care (01) | DRG 811 ==
LOC: SED 14:29 → PCC 19:58 → OBSVTOIN 19:58
PROVIDERS: ADMIT Internal Medicine; ATTEND Internal Medicine
PROC: 30233N1 Transfusion of Nonautologous Red Blood Cells into Peripheral Vein, Percutaneous Approach (ICD-10-PCS; 2017-01-18)
PROC: 30233N1 Transfusion of Nonautologous Red Blood Cells into Peripheral Vein, Percutaneous Approach (ICD-10-PCS; 2017-01-19)
PROC: 0DJ08ZZ Inspection of Upper Intestinal Tract, Via Natural or Artificial Opening Endoscopic (ICD-10-PCS; principal; 2017-01-19 12:45)
DX: D62 Acute posthemorrhagic anemia (principal); I85.11 Secondary esophageal varices with bleeding; D61.818 Other pancytopenia; K74.3 Primary biliary cirrhosis; K74.69 Other cirrhosis of liver; K75.4 Autoimmune hepatitis; K21.9 Gastro-esophageal reflux disease without esophagitis; E11.9 Type 2 diabetes mellitus without complications; Z79.4 Long term (current) use of insulin; R07.89 Other chest pain; N28.9 Disorder of kidney and ureter, unspecified